=== PATIENT | female | born 1950 | race Caucasian/White ===

== ENCOUNTER 2016-12-27 07:00 | Day surgery (SDC) | payer BC ==
--- NOTE | ~2016-12-27 | EGD ---
EGD REPORT [facility] [address] [id number] NAME: ELIZABETH JONES : [birth year] [place] [facility] [place] [id number] AGE: 66 ADM/REG DATE : 12/27/16 MR#: [id number] REPORT SERV DATE: 12/27/16 DICTATED BY: MARY STEEN DATE: 12/27/16 REPORT STATUS : Draft TRANSCRIBED BY: [facility] DATE: 12/27/16 Endoscopy Center Patient Name: Elizabeth Jones Date of : 1950 Attending MD: MARY STEEN MD Procedure Date No Time: 12/27/2016 Procedure: Colonoscopy Indications: Heme positive stool Referring MD: BERTA RON MD Medicines: as per anesthesia Complications: No immediate complications. Procedure: Pre-Anesthesia Assessment: - ASA Grade Assessment: II - A patient with mild systemic disease. After I obtained informed consent, the scope was passed under direct vision. Throughout the procedure, the patient's blood pressure, pulse, and oxygen saturations were monitored continuously. The PCF [id number] was introduced through the anus and advanced to the cecum, identified by appendiceal orifice and ileocecal valve. The colonoscopy was performed without difficulty. The patient tolerated the procedure. The quality of the bowel preparation was adequate to identify polyps. Findings: The perianal and digital rectal examinations were normal. A sessile polyp was found in the ascending colon. The polyp was 5 mm in size. The polyp was removed with a jumbo cold forceps. Resection and retrieval were complete. A few small and large-mouthed diverticula were found in the sigmoid colon and in the descending colon. Internal hemorrhoids were found during endoscopy and were mild. Impression: - One 5 mm polyp in the ascending colon. Resected and retrieved. - Diverticulosis in the sigmoid colon and in the descending colon. - Internal hemorrhoids. Recommendation: - Await pathology results. - Repeat colonoscopy for surveillance based on pathology results. Procedure Code(s): --- Professional --- 87045, Colonoscopy, flexible, proximal to splenic EGD REPORT [facility] [address] [place] [address] NAME: ELIZABETH JONES : [birth year] STATUS : REG [facility]#: [id number] AGE: 66 ADM/REG DATE : 12/27/16 MR#: [id number] REPORT SERV DATE: 12/27/16 DICTATED BY: MARY STEEN. DATE: 12/27/16 REPORT STATUS : Draft TRANSCRIBED BY: [employer] DATE: 12/27/16 flexure; with biopsy, single or multiple Diagnosis Code(s): --- Professional --- D12.2, Benign neoplasm of ascending colon K64.8, Other hemorrhoids K57.30, Diverticulosis of large intestine without perforation or abscess without bleeding R19.5, Other fecal abnormalities CPT copyright 2013 [employer]. All rights reserved. The codes documented in this report are preliminary and upon diet consultant review may be revised to meet current compliance requirements. MARY STEEN MD 12/27/2016 8:49 AM This report has been signed electronically. Number of Addenda: 0 Note Initiated On: 12/27/2016 8:13 AM Scope Withdrawal Time 0 hours 7 minutes 47 seconds [address] [place] [address]
[~2016-12-27 07:00] MED LIST: PRAVACHOL40 MG PO
== END 2016-12-27 23:59 | disposition home or self-care (01) ==
LOC: DMU 07:00
PROVIDERS: Internal Medicine Gastroenterology
PROC: 0DBK8ZX Excision of Ascending Colon, Via Natural or Artificial Opening Endoscopic, Diagnostic (ICD-10-PCS; principal; 2016-12-27 08:30)
DX: D12.2 Benign neoplasm of ascending colon (principal); K64.8 Other hemorrhoids; K57.30 Diverticulosis of large intestine without perforation or abscess without bleeding; E78.5 Hyperlipidemia, unspecified; E78.00 Pure hypercholesterolemia, unspecified; K44.9 Diaphragmatic hernia without obstruction or gangrene; Z88.0 Allergy status to penicillin; Z88.2 Allergy status to sulfonamides; Z88.5 Allergy status to narcotic agent; Z91.041 Radiographic dye allergy status; Z79.899 Other long term (current) drug therapy; Z98.890 Other specified postprocedural states
CPT/HCPCS: 88305; J2370